=== PATIENT | female | born 1995 | race Caucasian/White ===

== ENCOUNTER 2017-03-24 14:07 | Inpatient (IN) | payer BC, OTHER ==
[~2017-03-24] VITALS: Ht 170.2 cm; Wt 56.0 kg
[2017-03-24] MEDS ORDERED: AMPH30TA2 PO (14:45)
[2017-03-24 15:14] LABS: BASO % 0.5 %; BASO ABS # 0.03 K/uL (0-0.2); EOS ABS # 0.06 K/uL (0-0.5); HEMATOCRIT 34.3 % (37-47); HEMOGLOBIN 11.5 g/dL (12.0-16.0); IG# 0.01 K/uL (0.00-0.02); LYMPH % 27.1 %; LYMPH ABS # 1.56 K/uL (1.2-3.4); MEAN CELL VOLUME 89.8 fL (80-100); MEAN CORPUSCULAR HEMOGLOBIN 30.1 pg (25-34); MEAN CORPUSCULAR HGB CONC 33.5 g/dl (32-36); MEAN PLATELET VOLUME 10.8 fL (7.4-10.4); MONO % 9.9 %; MONO ABS # 0.57 K/uL (0.11-0.59); NEUT % 61.3 %; NEUT ABS # 3.52 K/uL (1.4-6.5); PLATELET COUNT 240 K/uL (130-400); RED CELL DISTRIBUTION WIDTH CV 12.8 % (11.5-14.5); RED CELL DISTRIBUTION WIDTH SD 41.2 fL (36.4-46.3); WHITE BLOOD COUNT 5.75 K/uL (4.8-10.8)
[2017-03-24] MEDS ORDERED: AMPH20TA2 PO (15:19)
[2017-03-24 15:31] LABS: ALBUMIN 3.9 gm/dl (3.4-5.0); CALCIUM 8.9 mg/dl (8.5-10.1); CREATININE 0.69 mg/dl (0.60-1.20)
[2017-03-24 15:42] LABS: TOTAL PROTEIN 7.5 gm/dl (6.4-8.2)
[2017-03-24] MEDS ORDERED: LORAZEPAM 1 MG TAB SL STA (16:00)
[2017-03-24] MEDS ORDERED: LORAZEPAM 2 MG/ML 1 ML VIAL ONE (16:38)
[2017-03-24] MEDS ORDERED: HALOPERIDOL LACTATE 5 MG/ML 1 ML VIAL ONE (16:38)
[2017-03-24 17:43] VITALS: O2SAT 96
[2017-03-24] MEDS ORDERED: NURSING VERBAL MED ORDER ONE (18:30)
[2017-03-24] MEDS ORDERED: MAGNESIUM HYDROXIDE SUSP 30 ML UDC PO PRN (19:00)
[2017-03-24] MEDS ORDERED: BISMUTH SUBSALICYLATE PER ML OMNICELL CHARGE PO PRN (19:00)
[2017-03-24] MEDS ORDERED: ACETAMINOPHEN 325 MG TAB PO PRN (19:00)
[2017-03-24] MEDS ORDERED: SODIUM CHLORIDE 0.65% NA SOLN 45 ML (OCEAN) PRN (19:00)
[2017-03-24] MEDS ORDERED: hydrOXYzine HCL 25 MG TAB PO PRN (19:00)
[2017-03-24] MEDS ORDERED: ALUMINUM/MAGNESIUM SUSP 30 ML UDC PO PRN (19:00)
[2017-03-24 19:01] VITALS: O2SAT 99
[2017-03-24 19:30] VITALS: BP 90/55; PULSE 99; TEMP 37; BMI 19.3
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
[2017-03-25] MEDS ORDERED: HALOPERIDOL 5 MG TAB PO PRN (11:30)
[2017-03-25] MEDS ORDERED: LORAZEPAM 1 MG TAB PO PRN (11:30)
[2017-03-25 11:47] LABS: POTASSIUM 3.3 mmol/L (3.5-5.1)
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
[2017-03-25] MEDS ORDERED: POTASSIUM CHLORIDE 20 MEQ TABCR PO ONE (13:00)
[2017-03-25 15:14] VITALS: BP 106/70; PULSE 82
[2017-03-25] MEDS: hydrOXYzine HCL 25 MG TAB PO PRN (21:33)
[2017-03-26 06:46] VITALS: BP_SYST 107; BP_SYST 108; BP_DIAS 66; BP_DIAS 69; PULSE 66; PULSE 99; TEMP 36.9
[2017-03-26 08:37] LABS: BLOOD UREA NITROGEN 7 mg/dl (7-18); CALCIUM 8.5 mg/dl (8.5-10.1); CARBON DIOXIDE 25 mmol/L (21-32); CREATININE 0.54 mg/dl (0.60-1.20); GLUCOSE 103 mg/dl (70-99); POTASSIUM 3.5 mmol/L (3.5-5.1); SODIUM 141 mmol/L (136-145)
[2017-03-26] MEDS ORDERED: HALOPERIDOL 1 MG TAB PO PRN (14:30)
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
[2017-03-26] MEDS ORDERED: DESTROY THIS MEDICATION SCH (14:45)
[2017-03-26] MEDS: hydrOXYzine HCL 25 MG TAB PO PRN ×2 (21:54→22:56)
[2017-03-27 06:55] VITALS: BP_SYST 100; BP_SYST 92; BP_DIAS 60; BP_DIAS 68; PULSE 61; PULSE 82; TEMP 36.8; Ht 170.2 cm; Wt 56.0 kg
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
[2017-03-27] MEDS: hydrOXYzine HCL 25 MG TAB PO PRN (23:34)
[2017-03-28 07:03] VITALS: BP_SYST 91; BP_SYST 96; BP_DIAS 58; BP_DIAS 65; PULSE 66; PULSE 80; TEMP 36.8
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
[2017-03-28] MEDS ORDERED: ARIPIprazole TAB 5 MG TAB PO ONE (12:39)
[2017-03-28] MEDS: hydrOXYzine HCL 25 MG TAB PO PRN ×2 (21:49→22:23)
[2017-03-29 06:56] VITALS: BP_SYST 81; BP_SYST 93; BP_DIAS 48; BP_DIAS 59; PULSE 72; PULSE 86; TEMP 36.7
[2017-03-29] MEDS: ARIPIprazole TAB 10 MG TAB PO SCH (09:54)
[2017-03-29 10:01] VITALS: BP 98/65; PULSE 56
--- NOTE | 2017-03-29 13:24 | Psychiatric Progress Notes ---
Progress Note Date of Service Mar 29, 2017. Interval History Ching Lund is a 22-year-old female from [place], [place], who is a [employer] student and was admitted on Mar 24, 2017 at 18:24 on an involuntary commitment ( will 03/29 1800) after she presented to the emergency room with family due to disorganized, erratic behavior and agitation. Manic behavior was believed to be substance induced by Adderall 60 mg daily but there is a positive family hx of bipolar disorder in maternal grandfather. Chief Complaint "I passed out earlier.". Subjective Patient was seen & assessed interval progress reviewed with Treatment Team. The patient says that she hasn't been sleeping well and not eating her usual quality of vegan foods, which she says lead her to pass out this AM. She says that she feels back to normal with the exception of her sleep, and wants to be able to go home where she believes she will sleep better. She looks back on this episode saying that the Adderall 60 mg was "way too much" for her. She denies having any further distorted thoughts including believing clowns were out to kill her (now saying she said that on purpose to mess with her mother). 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 She is considering submitting her 72 hr notice to expedite her discharge. She denies SI/HI. She processes how she will handle alcohol after discharge as we are recommending that she abstain. She doesn't think that she can change her friends or environment, as "everyone" goes out drinking on Fri and Sat, but agrees that she will try to go out with them, but remain sober and be the DD. Staff report that father called in earlier and wants her to withdraw from school this semester, which the patient was not aware of. Review of Systems Constitutional: + weakness, + fatigue ENT: No hearing loss, No unusual epistaxis, No nasal symptoms, No sore throat, No tinnitus, No dental problems, No trouble swallowing, No problem reported Respiratory: No cough, No sputum, No wheezing, No shortness of breath, No dyspnea on exertion, No dyspnea at rest, No hemoptysis, No problem reported Cardiovascular: No chest pain, No orthopnea, No PND, No edema, No claudication , No palpitations, No problem reported Abdomen: No pain, No nausea, No vomiting, No diarrhea, No constipation, No GI bleeding, No problem reported Musculoskeletal: No joint pain, No muscle pain, No swelling, No calf pain, No problem reported Neurologic: No memory loss, No paralysis, No weakness, No numbness/tingling, No vertigo, No balance problems, No problem reported Psychiatric: + problem reported (denies) Integumentary: No rash, No itch, No new/changing skin lesions, No color change , No bleeding, No problem reported Sleep Information Total Hours of Sleep: 6.75 Meal Information Percent of Breakfast Consumed: 100 Percent of Lunch Consumed: 100 Percent of Dinner Consumed: 50 Mental Status Exam During interview pt is: alert and oriented Appearance: appropriately dressed Eye contact is: good Motor behavior is: steady gait & station Speech: normal in rate, rhythm & volume Affect: euthymic Mood is: anxious, other ("fine") Thought process: linear, logical, clear, coherent, circumstantial (can get circumstantial at times about how grateful she is and how she will curb her drinking with martial arts and yoga), other (seems to have a rapid pace of thoughts but is appropriate to the conversation) Thought content: reality based without delusions, other (seems more amourous and loving and care toward all people) Suicidal thought are: denied Homicidal thoughts are: denied Hallucinations: denies auditory, denies visual Cognition: memory grossly intact, other (improved compared to prior MSE but still superficial appreciation and does not recall details well) Intelligence estimated to be: consistent with level of education Insight: impaired Judgement: impaired Impression Hypomanic symptoms improving with Abilify. Parents are apparently voicing a desire for her to leave school, which has not been discussed with her. 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 Plan (1) Psychosis Differential includes substance-induced (Adderall), bipolar disorder, brief psychotic disorder, or other primary thought disorder. The patient is a limited historian, so we will need to get collateral information from her family and outpatient psychiatrist. I called Dr. Weston's office today, and left a message, and we will request records. - Haldol 5mg q 4 hrs and lorazepam mg q 4 hrs prn. - Hold stimulants. - Family meeting. - Continue MNPR for now given violent behavior last night. The patient is aware of her actions, and was advised that she is expected to be in good behavioral control here, not to threaten or assault others, and that police will be contacted if this occurs. She expressed understanding. 03/26--Adderall induced eldon vs part of triggering event for 1st episode bipolar I. Met with parents as part of the family session to answer questions about diagnosis but also current plan for prn to determine how much she clears before adding standing mood stabilizer as necessary. Will decrease Haldol to 2 mg as she is petite and no longer agitated to minimize sedation and cognitive slowing. She is not able to engage in meaningful discussion about her treatment at this time so will file 303 petition. Parents support this. 03/27 comparing her active/voluble demeanor and speech today as well as reporting rapid thoughts last night, need to monitor for re-emerging hypomania, last prn haldol 4am on 03/26 no further prns. SHe is able to discuss that goal is to monitor for mood stability as she has more time aware from adderall, and yet she has poor insight wanting to treat her attention with ADHD medication. SHe is redirectable and very agreeable to monitoring and that she will not be started on antidepressant or stimulant for some time, and if any medication is considered it would be mood stablizer. SHe is showing need to have a space to retreat when anxious and showing evidence of possible emerging hypomania, will leave on MNPR and reassess mid-day or end of day to see how she handles being in the milieu and with visitors 03/28 she seems to be more elvated and amourous today in ther thoughts and feels good despite getting poor sleep due to same thoughts. She would be considered hypomanic today but observation and she agrees that she feels "better" than her usual self. She seems in the boundary of still being able to appreciate risks and benefits of staying vs discharge, but also seems to have such a kathleen lens likely due to hypomania that she may not feel the gravity of the risk. I am pleased that she plans to talk to her parents. I recommend she sign in voluntarily and if she desires to be out of the hospital by Wednesday or Wed that she has the ability to request discharge. Goal of sharing this with her is to be transparent and open to help her trust the medical system to help her now and longer term. Will speak with SW and RN's so we can discus wtih parents when they visit today. Will start abilify 5mg today and 10mg tomorrow for mood stablization wt goal to use as a bridge to outpatient wtih future consideration for lamictal WIll need to get ZARINA for metabolic studies from [facility] drawn recently 03/29 - Resolving - Continue current meds - Family meeting with parents to discuss return to school (2) Hypokalemia Potassium was 3.0 in the emergency room, and was not repleted. We will recheck electrolytes today, monitor by mouth intake, and consider the need for repletion. - Potassium has come up to 3.3, will replete, continue to monitor. (3) Restricted diet patient has been following a macrobiotic vegetarian diet, eating mainly frozen foods per family, unclear if excessive exercise was part of ED or increased goal directed behavior. Mother feels she has been overly preoccupied with weight for some time. (4) ADHD prior trial of 2 other stimulants, Adderall held due to eldon. Family plan to also notify outpatient provider that they do not want her to take any more stimulant medication. Confirmed that Adderall secured here and will order destroyed. Discharge / Aftercare Planning Therapist: Name: N/A Brass Pourer: Name: N/A Other: [facility] of App[facility]ment [facility] Date of Appointment #1: Apr 02, 2017 Time of Appointment #1: 10:30 AM Appointment #1 Notes: Appointment with Desirae Visit Code E&M Code: 51355 Inventory Assets Strengths: intelligence, supportive family Needs: address strained relationship with family, OP care Risk Factors Assessment : Yes /single/: Yes Higher / Fall in social status: No Health problems: No Mental Health Diagnoses: Yes Substance use disorders: No Previous attempt: No Family history of suicide: No Previous psychiatric stay: No Hopelessness: No Smoker: No Protective Factors Assessment Mormonism beliefs: Yes : No Responsible for young children: No Employed: Yes Stable relationships: No Supportive family: Yes Data Vital Signs Last 24 Hrs: Date Time Temp Pulse Resp B/P (MAP) Pulse Ox O2 Delivery O2 Flow Rate FiO2 03/29/17 10:01 56 16 98/65 03/29/17 06:56 36.7 72 16 93/59 86 81/48 Meds Administered Last 24 Hrs: Meds Administered (Past 24Hrs) Medications (Trade) Dose Ordered Sig/Lelo Route Start Time Stop Time Status Last Admin Dose Admin Aripiprazole (Abilify Tab) 10 mg QAM PO 03/29/17 09:00 04/28/17 08:59 03/29/17 09:54 10 MG Aripiprazole (Abilify Tab) 5 mg 1239 ONCE PO 03/28/17 12:39 03/28/17 12:45 DC 03/28/17 13:12 5 MG Lab Results Last 24 Hrs: 03/24/17 14:56 Red Blood Count 3.82, Mean Corpuscular Volume 89.8, Mean Corpuscular Hemoglobin 30.1, Mean Corpuscular Hemoglobin Concent 33.5, Mean Platelet Volume 10.8, Neutrophils (%) (Auto) 61.3, Lymphocytes (%) (Auto) 27.1, Monocytes (%) (Auto) 9.9, Eosinophils (%) (Auto) 1.0, Basophils (%) (Auto) 0.5, Neutrophils # (Auto) 3.52, Lymphocytes # (Auto) 1.56, Monocytes # (Auto) 0.57, Eosinophils # (Auto) 0.06, Basophils # (Auto) 0.03 03/26/17 07:45 Test 03/24/17 14:56 03/24/17 15:01 03/24/17 15:35 03/26/17 07:45 White Blood Count 5.75 K/uL (4.8-10.8) Red Blood Count 3.82 M/uL (4.2-5.4) Hemoglobin 11.5 g/dL (12.0-16.0) Hematocrit 34.3 % (37-47) Mean Corpuscular Volume 89.8 fL (80-100) Mean Corpuscular Hemoglobin 30.1 pg (25-34) Mean Corpuscular Hemoglobin Concent 33.5 g/dl (32-36) Platelet Count 240 K/uL (130-400) Mean Platelet Volume 10.8 fL (7.4-10.4) Neutrophils (%) (Auto) 61.3 % Lymphocytes (%) (Auto) 27.1 % Monocytes (%) (Auto) 9.9 % Eosinophils (%) (Auto) 1.0 % Basophils (%) (Auto) 0.5 % Neutrophils # (Auto) 3.52 K/uL (1.4-6.5) Lymphocytes # (Auto) 1.56 K/uL (1.2-3.4) Monocytes # (Auto) 0.57 K/uL (0.11-0.59) Eosinophils # (Auto) 0.06 K/uL (0-0.5) Basophils # (Auto) 0.03 K/uL (0-0.2) RDW Standard Deviation 41.2 fL (36.4-46.3) RDW Coefficient of Variation 12.8 % (11.5-14.5) Immature Granulocyte % (Auto) 0.2 % Immature Granulocyte # (Auto) 0.01 K/uL (0.00-0.02) Total Bilirubin 0.6 mg/dl (0.2-1) Direct Bilirubin 0.2 mg/dl (0-0.2) Aspartate Amino Transf (AST/SGOT) 24 U/L (15-37) Alanine Aminotransferase (ALT/SGPT) 24 U/L (12-78) Alkaline Phosphatase 61 U/L (45-117) Total Protein 7.5 gm/dl (6.4-8.2) Albumin 3.9 gm/dl (3.4-5.0) Thyroid Stimulating Hormone (TSH) 1.100 uIu/ml (0.300-4.500) Ethyl Alcohol mg/dL < 3.0 mg/dl (0-3) Human Chorionic Gonadotropin, Qual NEG (NEG) Urine Color YELLOW Urine Appearance CLEAR (CLEAR) Urine pH 7.0 (4.5-7.5) Urine Specific Ringold 1.010 (1.000-1.030) Urine Protein NEG (NEG) Urine Glucose (UA) NEG (NEG) Urine Ketones NEG (NEG) Urine Occult Blood NEG (NEG) Urine Nitrite NEG (NEG) Urine Bilirubin NEG (NEG) Urine Urobilinogen NEG (NEG) Urine Leukocyte Esterase NEG (NEG) Urine Opiates Screen NEG (NEG) Urine Methadone, Qualitative NEG (NEG) Urine Barbiturates NEG (NEG) Urine Phencyclidine (PCP) Level NEG (NEG) Urine Amphetamines Confirmation 3690 NG/ML ([id number]) Ur Amphetamine/Methamphetamine POS (NEG) Urine Methamphetamine Confirmation NEGATIVE NG/ML ([id number]) MDMA (Ecstasy) Screen NEG (NEG) Urine Benzodiazepines Screen NEG (NEG) Urine Cocaine Metabolite NEG (NEG) Urine Marijuana (THC) NEG (NEG) Anion Gap 8.0 mmol/L (3-11) Est Creatinine Clear Calc Drug Dose 144.5 ml/min Estimated GFR () > 150.0 Estimated GFR (Non- 133.9 BUN/Creatinine Ratio 12.0 (10-20) Calcium Level 8.5 mg/dl (8.5-10.1) Problem Qualifiers (1) Psychosis: Psychosis type: unspecified psychosis type Qualified Codes: F29 - Unspecified psychosis not due to a substance or known physiological condition
[2017-03-29] MEDS: hydrOXYzine HCL 25 MG TAB PO PRN ×2 (22:33→23:04)
[2017-03-30 07:00] VITALS: BP_SYST 89; BP_SYST 99; BP_DIAS 53; BP_DIAS 64; PULSE 66; PULSE 76; TEMP 36.8
[2017-03-30] MEDS: ARIPIprazole TAB 10 MG TAB PO SCH (08:53)
--- NOTE | 2017-03-30 12:07 | Psychiatric Progress Notes ---
Progress Note Date of Service Mar 30, 2017. Interval History Ching Lund is a 22-year-old female from [place], [place], who is a [employer] student and was admitted on Mar 24, 2017 at 18:24 on an involuntary commitment ( will 03/29 1800) after she presented to the emergency room with family due to disorganized, erratic behavior and agitation. Manic behavior was believed to be substance induced by Adderall 60 mg daily but there is a positive family hx of bipolar disorder in maternal grandfather. Chief Complaint "Good.". Subjective Patient was seen & assessed interval progress reviewed with Treatment Team. The patient had a family meeting today with both her parents. She describes her father as being "very OCD" and repeating things, and her mother being "calmer". She believes that they have a working plan that they are all in agreement with. This includes the fact that she will remain in school and in her apartment. She will strive to be more honest with her parents about any stress that she is under. She agrees to local psychiatric care and will also have a meeting with student advocacy on afternoon to talk about possible reduction in her course load this ester. She agrees to try to not to drink when she is out with her friends. Her 72 hour notice remains in and will be up on April 01. She continues to deny any further distorted thoughts, auditory or visual hallucinations. She denies any suicidal or homicidal thinking. She is able to present a linear and logical course of action today and is happy with that progress. Her thinking appears more organized today, and reality based. She denies side effects to medications. She reports that her sleep last night was slightly improved by taking the time to write her thoughts down before she went to bed and by taking a when necessary Vistaril. Review of Systems Constitutional: No fever, No chills, No sweats, No weight loss, No weakness, No fatigue, No problem reported ENT: No hearing loss, No unusual epistaxis, No nasal symptoms, No sore throat, No tinnitus, No dental problems, No trouble swallowing, No problem reported Respiratory: No cough, No sputum, No wheezing, No shortness of breath, No dyspnea on exertion, No dyspnea at rest, No hemoptysis, No problem reported Cardiovascular: No chest pain, No orthopnea, No PND, No edema, No claudication , No palpitations, No problem reported Abdomen: No pain, No nausea, No vomiting, No diarrhea, No constipation, No GI bleeding, No problem reported Musculoskeletal: No joint pain, No muscle pain, No swelling, No calf pain, No problem reported Neurologic: No memory loss, No paralysis, No weakness, No numbness/tingling, No vertigo, No balance problems, No problem reported Psychiatric: + insomnia Integumentary: No rash, No itch, No new/changing skin lesions, No color change , No bleeding, No problem reported Sleep Information Total Hours of Sleep: 5.50 Meal Information Percent of Breakfast Consumed: 90 Percent of Lunch Consumed: 100 Percent of Dinner Consumed: 50 Mental Status Exam During interview pt is: alert and oriented Appearance: appropriately dressed Eye contact is: good Motor behavior is: steady gait & station Speech: normal in rate, rhythm & volume Affect: euthymic Mood is: anxious, other ("fine") Thought process: linear, logical, clear, coherent, circumstantial (can get circumstantial at times about how grateful she is and how she will curb her drinking with martial arts and yoga), other (seems to have a rapid pace of thoughts but is appropriate to the conversation) Thought content: reality based without delusions, other (seems more amourous and loving and care toward all people) Suicidal thought are: denied Homicidal thoughts are: denied Hallucinations: denies auditory, denies visual Cognition: memory grossly intact, other (improved compared to prior MSE but still superficial appreciation and does not recall details well) Intelligence estimated to be: consistent with level of education Insight: impaired Judgement: impaired Impression Continues to improve slowly. Had a productive meeting with her parents and all seem to be on the same page about her schooling and aftercare. We will continue her current course of medications and if she is able to maintain this improvement over the next day or so, we will consider discharge. Plan (1) Psychosis Differential includes substance-induced (Adderall), bipolar disorder, brief psychotic disorder, or other primary thought disorder. The patient is a limited historian, so we will need to get collateral information from her family and outpatient psychiatrist. I called Dr. Weston's office today, and left a message, and we will request records. - Haldol 5mg q 4 hrs and lorazepam mg q 4 hrs prn. - Hold stimulants. - Family meeting. - Continue MNPR for now given violent behavior last night. The patient is aware of her actions, and was advised that she is expected to be in good behavioral control here, not to threaten or assault others, and that police will be contacted if this occurs. She expressed understanding. 03/26--Adderall induced eldon vs part of triggering event for 1st episode bipolar I. Met with parents as part of the family session to answer questions about diagnosis but also current plan for prn to determine how much she clears before adding standing mood stabilizer as necessary. Will decrease Haldol to 2 mg as she is petite and no longer agitated to minimize sedation and cognitive slowing. She is not able to engage in meaningful discussion about her treatment at this time so will file 303 petition. Parents support this. 03/27 comparing her active/voluble demeanor and speech today as well as reporting rapid thoughts last night, need to monitor for re-emerging hypomania, last prn haldol 4am on 03/26 no further prns. SHe is able to discuss that goal is to monitor for mood stability as she has more time aware from adderall, and yet she has poor insight wanting to treat her attention with ADHD medication. SHe is redirectable and very agreeable to monitoring and that she will not be started on antidepressant or stimulant for some time, and if any medication is considered it would be mood stablizer. SHe is showing need to have a space to retreat when anxious and showing evidence of possible emerging hypomania, will leave on MNPR and reassess mid-day or end of day to see how she handles being in the milieu and with visitors 03/28 she seems to be more elvated and amourous today in ther thoughts and feels good despite getting poor sleep due to same thoughts. She would be considered hypomanic today but observation and she agrees that she feels "better" than her usual self. She seems in the boundary of still being able to appreciate risks and benefits of staying vs discharge, but also seems to have such a kathleen lens likely due to hypomania that she may not feel the gravity of the risk. I am pleased that she plans to talk to her parents. I recommend she sign in voluntarily and if she desires to be out of the hospital by Wednesday or Wed that she has the ability to request discharge. Goal of sharing this with her is to be transparent and open to help her trust the medical system to help her now and longer term. Will speak with SW and RN's so we can discus wtih parents when they visit today. Will start abilify 5mg today and 10mg tomorrow for mood stablization wt goal to use as a bridge to outpatient wtih future consideration for lamictal WIll need to get ZARINA for metabolic studies from [facility] drawn recently 03/29 - Resolving - Continue current meds - Family meeting with parents [place] [facility] [place] - Continue current meds - 72 hour notice remains in. We could consider discharge in the next day or so if progress continues - Monitoring labs on atypicals done this morning, all within normal limits (2) Hypokalemia Potassium was 3.0 in the emergency room, and was not repleted. We will recheck electrolytes today, monitor by mouth intake, and consider the need for repletion. - Potassium has come up to 3.3, will replete, continue to monitor. (3) Restricted diet patient has been following a macrobiotic vegetarian diet, eating mainly frozen foods per family, unclear if excessive exercise was part of ED or increased goal directed behavior. Mother feels she has been overly preoccupied with weight for some time. (4) ADHD prior trial of 2 other stimulants, Adderall held due to eldon. Family plan to also notify outpatient provider that they do not want her to take any more stimulant medication. Confirmed that Adderall secured here and will order destroyed. Discharge / Aftercare Planning Therapist: Name: N/A Brush Finisher: Name: N/A Other: [facility] of [facility] Date of Appointment #1: Apr 02, 2017 Time of Appointment #1: 10:30 AM Appointment #1 Notes: Appointment with Desirae Visit Code E&M Code: 58302 Inventory Assets Strengths: intelligence, supportive family Needs: address strained relationship with family, OP care Risk Factors Assessment : Yes /single/: Yes Higher / Fall in social status: No Health problems: No Mental Health Diagnoses: Yes Substance use disorders: No Previous attempt: No Family history of suicide: No Previous psychiatric stay: No Hopelessness: No Smoker: No Protective Factors Assessment Tenriism beliefs: Yes : No Responsible for young children: No Employed: Yes Stable relationships: No Supportive family: Yes Data Vital Signs Last 24 Hrs: Date Time Temp Pulse Resp B/P (MAP) Pulse Ox O2 Delivery O2 Flow Rate FiO2 03/30/17 07:00 36.8 66 16 99/64 76 89/53 Meds Administered Last 24 Hrs: Meds Administered (Past 24Hrs) Medications (Trade) Dose Ordered Sig/Lelo Route Start Time Stop Time Status Last Admin Dose Admin Aripiprazole (Abilify Tab) 10 mg QAM PO 03/29/17 09:00 04/28/17 08:59 03/30/17 08:53 10 MG Aripiprazole (Abilify Tab) 5 mg 1239 ONCE PO 03/28/17 12:39 03/28/17 12:45 DC 03/28/17 13:12 5 MG Lab Results Last 24 Hrs: Last 24 Hours Test 03/29/17 12:34 03/30/17 07:59 Bedside Glucose 113 mg/dl Fasting Glucose 85 mg/dl Triglycerides Level 46 mg/dl Cholesterol Level 143 mg/dl HDL Cholesterol 86 mg/dl LDL Cholesterol, Calculated 48 mg/dl VLDL Cholesterol, Calculated 9 mg/dl Cholesterol/HDL Ratio 1.7 Problem Qualifiers (1) Psychosis: Psychosis type: unspecified psychosis type Qualified Codes: F29 - Unspecified psychosis not due to a substance or known physiological condition
[2017-03-30] MEDS: hydrOXYzine HCL 25 MG TAB PO PRN ×2 (23:00→23:40)
[2017-03-31 07:00] VITALS: BP_SYST 86; BP_SYST 96; BP_DIAS 53; BP_DIAS 62; PULSE 64; PULSE 82; TEMP 36.5
[2017-03-31] MEDS: ARIPIprazole TAB 10 MG TAB PO SCH (08:06)
[2017-03-31] MEDS ORDERED: ABL10 PO (09:24)
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
== END 2017-03-31 12:35 | disposition home or self-care (01) | DRG 885 ==
LOC: C.EDA 14:10 → C.MHU 18:24 → ENRESERV 18:46 → EDBEDREQ 18:49
PROVIDERS: ADMIT Psychiatry & Neurology Child & Adolescent Psychiatry; ATTEND Psychiatry & Neurology Psychiatry
DX: F29 Unspecified psychosis not due to a substance or known physiological condition (principal); E87.6 Hypokalemia; F90.9 Attention-deficit hyperactivity disorder, unspecified type; Z79.899 Other long term (current) drug therapy; Z81.8 Family history of other mental and behavioral disorders